=== PATIENT | male | born 1955 | race Caucasian/White ===

== ENCOUNTER 2020-08-29 14:18 | Emergency (ER) | payer MEDICAID ==
[~2020-08-29] VITALS: Ht 185.4 cm; Wt 79.5 kg
[~2020-08-29 14:18] MED LIST: DILANTIN
[2020-08-29 15:06] VITALS: BP 114/67
== END 2020-08-29 19:13 | disposition home or self-care (01) ==
LOC: EMS 14:18
DX: F10.129 Alcohol abuse with intoxication, unspecified (principal); M25.552 Pain in left hip; F17.210 Nicotine dependence, cigarettes, uncomplicated
CPT/HCPCS: 72170; 99284; 73120-TC; Z7502

== ENCOUNTER 2020-08-29 22:49 | Emergency (ER) | payer MEDICAID ==
[~2020-08-29] VITALS: Ht 177.8 cm; Wt 79.5 kg
[2020-08-30 02:52] VITALS: BP 148/94
[2020-08-30] MEDS ORDERED: ChlordiazePOXIDE HCL 25 MG CAPSULE PO ONE ×2 (03:45)
[2020-08-30 04:11] LABS: GLUCOSE,POINT OF CARE 112 MG/DL (70-110)
[2020-08-30] MEDS ORDERED: LevETIRAcetam 500 MG TABLET PO ONE (04:15)
== END 2020-08-30 04:58 | disposition home or self-care (01) ==
LOC: EMS 22:49
DX: F10.10 Alcohol abuse, uncomplicated (principal); R25.1 Tremor, unspecified; F17.210 Nicotine dependence, cigarettes, uncomplicated; Z59.0 Homelessness
CPT/HCPCS: 82962; 99283

== ENCOUNTER 2021-05-08 22:26 | Emergency (ER) | payer MEDICAID ==
[~2021-05-08] VITALS: Ht 182.9 cm; Wt 79.0 kg
[~2021-05-08 22:26] MED LIST changes: +CHLO5CAP4 PO; +LEVE250T4 PO
[2021-05-09 04:00] VITALS: BP 121/74
== END 2021-05-09 04:05 | disposition home or self-care (01) ==
LOC: EMS 22:27
DX: S01.111A Laceration without foreign body of right eyelid and periocular area, initial encounter (principal); S50.312A Abrasion of left elbow, initial encounter; S09.90XA Unspecified injury of head, initial encounter; F10.20 Alcohol dependence, uncomplicated; Z79.899 Other long term (current) drug therapy; W18.39XA Other fall on same level, initial encounter; Y93.89 Activity, other specified; Y92.89 Other specified places as the place of occurrence of the external cause; Y99.8 Other external cause status
CPT/HCPCS: 70450; 72125; 99284

== ENCOUNTER 2021-05-15 20:43 | Emergency (ER) | payer MEDICAID ==
[~2021-05-15] VITALS: Ht 180.3 cm; Wt 79.5 kg
[2021-05-15 21:39] LABS: BASOPHILS % (AUTO) 1.1 % (0.0-2.0); EOSINOPHILS % (AUTO) 4.1 % (1.0-6.0); HEMOGLOBIN 10.1 g/dL (13.5-17.5); LYMPHOCYTES # (AUTO) 1.3 K/uL (1.0-4.8); LYMPHOCYTES % (AUTO) 30.9 % (22.0-44.0); MEAN CORPUSCULAR HGB CONC 31.6 G/dL (31.0-37.0); MEAN CORPUSCULAR VOLUME 79 fL (80-100); MONOCYTES # (AUTO) 0.4 K/uL (0.1-1.0); MONOCYTES % (AUTO) 8.7 % (2.0-9.0); NEUTROPHILS # (AUTO) 2.2 K/uL (1.8-7.7); NEUTROPHILS % (AUTO) 55.2 % (40.0-70.0); PLATELET COUNT (AUTO) 274 K/uL (150-450); RED BLOOD CELL COUNT(AUTO) 4.04 MIL/uL (4.50-5.90); RED CELL DISTRIBUTION WIDTH 21.8 % (11.5-14.5)
[2021-05-15 21:54] LABS: ALANINE AMINOTRANSFERASE 17 U/L (12-78); ALBUMIN 3.2 g/dL (3.4-5.0); ALKALINE PHOSPHATASE 81 U/L (46-116); ANION GAP 12 mmol/L (8-16); ASPARTATE AMINOTRANSFERASE 31 U/L (15-37); BILIRUBIN,TOTAL 0.2 mg/dL (0.1-1.0); CALCIUM, TOTAL 8.9 mg/dL (8.8-10.5); CARBON DIOXIDE 29 mmol/L (22-29); CHLORIDE 103 mmol/L (98-107); CREATININE 0.61 mg/dL (0.60-1.30); GLOMERULAR FILTR. RATE CALC > 60 mL/min (>60); GLUCOSE,RANDOM 122 mg/dL (70-110); LIPASE 135 U/L (73-393); SODIUM SERUM 144 mmol/L (136-145); TOTAL PROTEIN, SERUM 8.7 g/dL (6.4-8.2); UREA NITROGEN, BLOOD 8 mg/dL (7-18)
[2021-05-15 21:56] LABS: AMMONIA 22 umol/L (11-32)
[2021-05-16] MEDS ORDERED: POTASSIUM CHLORIDE 20 MEQ ER TABLET PO ONE (01:00)
[2021-05-16 05:21] VITALS: BP 115/75
== END 2021-05-16 05:28 | disposition home or self-care (01) ==
LOC: EMS 20:46 → MERGE 20:46 → EMS 05-16 05:28
DX: F10.129 Alcohol abuse with intoxication, unspecified (principal); Y90.8 Blood alcohol level of 240 mg/100 ml or more; R51.9 Headache, unspecified; Z79.899 Other long term (current) drug therapy
CPT/HCPCS: 36415; 70450; 71045; 72125; 80053; 82140; 83690; 83735; 84484; 85025; 93005; 99285; G0480

== ENCOUNTER 2021-05-16 09:21 | Inpatient (IN) | payer MEDICAID ==
[~2021-05-16] VITALS: Ht 182.9 cm; Wt 74.1 kg
[2021-05-16] MEDS ORDERED: LORazepam 2 MG/ML VIAL IM ONE (12:00)
[2021-05-16] MEDS ORDERED: IOHEXOL 350 MG/ML 75 ML VIAL ONE (12:15)
[2021-05-16] MEDS ORDERED: SODIUM CHLORIDE 0.9% 0 ML ONE (12:15)
[2021-05-16 12:38] LABS: ANION GAP 21 mmol/L (8-16); CALCIUM, TOTAL 9.3 mg/dL (8.8-10.5); CARBON DIOXIDE 18 mmol/L (22-29); CHLORIDE 99 mmol/L (98-107); CREATININE 0.91 mg/dL (0.60-1.30); GLOMERULAR FILTR. RATE CALC > 60 mL/min (>60); GLUCOSE,RANDOM 120 mg/dL (70-110); POTASSIUM 3.8 mmol/L (3.5-5.1); SODIUM SERUM 138 mmol/L (136-145); UREA NITROGEN, BLOOD 8 mg/dL (7-18)
[2021-05-16 12:44] LABS: ALANINE AMINOTRANSFERASE 15 U/L (12-78); ALBUMIN 3.3 g/dL (3.4-5.0); ALKALINE PHOSPHATASE 87 U/L (46-116); ASPARTATE AMINOTRANSFERASE 36 U/L (15-37); BILIRUBIN,TOTAL 0.4 mg/dL (0.1-1.0); TOTAL PROTEIN, SERUM 8.9 g/dL (6.4-8.2)
[2021-05-16 12:48] LABS: BASOPHILS % (AUTO) 0.5 % (0.0-2.0); EOSINOPHILS % (AUTO) 0.3 % (1.0-6.0); HEMATOCRIT 30.8 % (41-53); HEMOGLOBIN 9.7 g/dL (13.5-17.5); LYMPHOCYTES # (AUTO) 0.9 K/uL (1.0-4.8); LYMPHOCYTES % (AUTO) 12.6 % (22.0-44.0); MEAN CORPUSCULAR HEMOGLOBIN 24.9 pg (26.0-34.0); MEAN CORPUSCULAR HGB CONC 31.5 G/dL (31.0-37.0); MEAN CORPUSCULAR VOLUME 79 fL (80-100); MONOCYTES # (AUTO) 0.5 K/uL (0.1-1.0); MONOCYTES % (AUTO) 7.4 % (2.0-9.0); NEUTROPHILS # (AUTO) 5.6 K/uL (1.8-7.7); NEUTROPHILS % (AUTO) 79.2 % (40.0-70.0); PLATELET COUNT (AUTO) 243 K/uL (150-450); RED BLOOD CELL COUNT(AUTO) 3.89 MIL/uL (4.50-5.90); RED CELL DISTRIBUTION WIDTH 21.7 % (11.5-14.5)
[2021-05-16 14:49] LABS: COVID AG,FIA SOURCE NASAL SWAB
[2021-05-16] MEDS ORDERED: LIDOCAINE 1%/EPI 1:200,000/PF 30 ML VIAL PERC ONE (15:00)
[2021-05-16 17:35] VITALS: BP 166/100
[2021-05-16 17:42] VITALS: BP 180/99
[2021-05-16] MEDS ORDERED: LORazepam 2 MG/ML VIAL IVP ONE (18:00)
[2021-05-16 18:01] LABS: GLUCOMETER DEV NAME(LOC) 5S.1B; GLUCOSE,POINT OF CARE 136 MG/DL (70-110)
[2021-05-16 20:23] VITALS: BP 150/90
[2021-05-17] MEDS ORDERED: ONDANSETRON HCL 4 MG/2 ML VIAL IVP PRN (01:00)
[2021-05-17] MEDS ORDERED: MAGNESIUM HYDROXIDE SUSPENSION 30 ML UDCUP PO PRN (01:00)
[2021-05-17] MEDS ORDERED: ALBUTEROL SULFATE 2.5 MG/0.5 ML NEB SOLUTION NEB PRN (01:00)
[2021-05-17] MEDS ORDERED: ZOLPIDEM TARTRATE 5 MG TABLET PO PRN (01:00)
[2021-05-17] MEDS ORDERED: IPRATROPIUM BROMIDE 0.5 MG/2.5 ML NEB SOLUTION NEB PRN (01:00)
[2021-05-17] MEDS ORDERED: ACETAMINOPHEN 325 MG TABLET PO PRN (01:00)
[2021-05-17] MEDS ORDERED: BISACODYL 10 MG RECTAL RECTAL SUPPOSITORY PR PRN (01:00)
[2021-05-17] MEDS ORDERED: LORazepam 2 MG/ML VIAL IVP PRN (01:00)
[2021-05-17] MEDS ORDERED: SODIUM CHLORIDE 0.9% 250 ML IV ONE (01:25)
[2021-05-17] MEDS ORDERED: LevETIRAcetam 1,000 MG in DEXTROSE 5%-WATER 100 ML IV ONE (02:00)
[2021-05-17 02:22] VITALS: BP 149/94
[2021-05-17 04:49] VITALS: BP 138/99
[2021-05-17] MEDS: ChlordiazePOXIDE HCL 25 MG CAPSULE PO SCH ×3 (04:54→11:57)
[2021-05-17 07:46] VITALS: BP 150/86
[2021-05-17] MEDS: 1: MAGNESIUM SULFATE 2 GM, MVI, ADULT NO.1 WITH VIT K 10 ML, THIAMINE 100 MG, FOLIC ACID IV SCH ×10 (08:23→22:35)
[2021-05-17] MEDS: PANTOPRAZOLE SODIUM 40 MG/VIAL IVP SCH (08:31)
[2021-05-17] MEDS: HEPARIN SODIUM,PORCINE 5,000 UNITS/ML VIAL SQ SCH ×3 (08:32→23:58)
[2021-05-17 11:51] VITALS: BP 131/79
[2021-05-17] MEDS ORDERED: LevETIRAcetam 1,000 MG in DEXTROSE 5%-WATER 100 ML IV SCH (14:00)
[2021-05-17 16:30] VITALS: BP 117/84
[2021-05-17] MEDS ORDERED: SODIUM CHLORIDE 0.9% 1,000 ML ONE (19:50)
[2021-05-17 20:10] VITALS: BP 116/67
[2021-05-17 20:19] LABS: BASOPHILS % (AUTO) 0.9 % (0.0-2.0); EOSINOPHILS % (AUTO) 2.9 % (1.0-6.0); HEMATOCRIT 30.7 % (41-53); HEMOGLOBIN 9.8 g/dL (13.5-17.5); LYMPHOCYTES # (AUTO) 0.7 K/uL (1.0-4.8); LYMPHOCYTES % (AUTO) 9.4 % (22.0-44.0); MEAN CORPUSCULAR HEMOGLOBIN 24.9 pg (26.0-34.0); MEAN CORPUSCULAR HGB CONC 31.8 G/dL (31.0-37.0); MEAN CORPUSCULAR VOLUME 78 fL (80-100); MONOCYTES # (AUTO) 0.4 K/uL (0.1-1.0); NEUTROPHILS # (AUTO) 5.9 K/uL (1.8-7.7); NEUTROPHILS % (AUTO) 81.8 % (40.0-70.0); PLATELET COUNT (AUTO) 193 K/uL (150-450); RED BLOOD CELL COUNT(AUTO) 3.91 MIL/uL (4.50-5.90); RED CELL DISTRIBUTION WIDTH 21.2 % (11.5-14.5)
[2021-05-17] MEDS: LevETIRAcetam 500 MG TABLET PO SCH (20:24)
[2021-05-17] MEDS: CeFAZolin 2 GM/DEXTROSE 50 ML IV SCH (20:24)
[2021-05-17 20:27] LABS: ANION GAP 10 mmol/L (8-16); CALCIUM, TOTAL 8.9 mg/dL (8.8-10.5); CARBON DIOXIDE 26 mmol/L (22-29); CHLORIDE 101 mmol/L (98-107); CREATININE 0.76 mg/dL (0.60-1.30); GLOMERULAR FILTR. RATE CALC > 60 mL/min (>60); GLUCOSE,RANDOM 141 mg/dL (70-110); POTASSIUM 3.5 mmol/L (3.5-5.1); SODIUM SERUM 137 mmol/L (136-145); UREA NITROGEN, BLOOD 12 mg/dL (7-18)
[2021-05-17 20:33] LABS: ALANINE AMINOTRANSFERASE 16 U/L (12-78); ALBUMIN 2.6 g/dL (3.4-5.0); ALKALINE PHOSPHATASE 86 U/L (46-116); ASPARTATE AMINOTRANSFERASE 23 U/L (15-37); BILIRUBIN,TOTAL 0.4 mg/dL (0.1-1.0)
[2021-05-18] VITALS (7 sets, daily range): BP systolic 118–147; BP diastolic 69–92
[2021-05-18] MEDS: HYDROCODONE/ACETAMINOPHEN 5-325 MG TABLET PO PRN ×2 (00:15→16:30)
[2021-05-18] MEDS ORDERED: LevETIRAcetam 1,000 MG in DEXTROSE 5%-WATER 100 ML IV SCH (02:00)
[2021-05-18] MEDS: CeFAZolin 2 GM/DEXTROSE 50 ML IV SCH ×3 (03:11→19:38)
[2021-05-18] MEDS: 1: MAGNESIUM SULFATE 2 GM, MVI, ADULT NO.1 WITH VIT K 10 ML, THIAMINE 100 MG, FOLIC ACID IV SCH ×10 (04:14→17:58)
[2021-05-18 07:00] LABS: BASOPHILS % (AUTO) 0.8 % (0.0-2.0); HEMOGLOBIN 9.1 g/dL (13.5-17.5); LYMPHOCYTES # (AUTO) 1.3 K/uL (1.0-4.8); LYMPHOCYTES % (AUTO) 25.4 % (22.0-44.0); MEAN CORPUSCULAR HEMOGLOBIN 24.9 pg (26.0-34.0); MEAN CORPUSCULAR HGB CONC 31.5 G/dL (31.0-37.0); MEAN CORPUSCULAR VOLUME 79 fL (80-100); MONOCYTES # (AUTO) 0.4 K/uL (0.1-1.0); MONOCYTES % (AUTO) 7.8 % (2.0-9.0); NEUTROPHILS # (AUTO) 3.2 K/uL (1.8-7.7); PLATELET COUNT (AUTO) 180 K/uL (150-450); RED BLOOD CELL COUNT(AUTO) 3.67 MIL/uL (4.50-5.90)
[2021-05-18] MEDS ORDERED: LORazepam 2 MG TABLET PO PRN (07:00)
[2021-05-18 07:30] LABS: ALANINE AMINOTRANSFERASE 10 U/L (12-78); ALBUMIN 2.4 g/dL (3.4-5.0); ALKALINE PHOSPHATASE 66 U/L (46-116); ANION GAP 6 mmol/L (8-16); ASPARTATE AMINOTRANSFERASE 19 U/L (15-37); BILIRUBIN,TOTAL 0.3 mg/dL (0.1-1.0); CALCIUM, TOTAL 8.5 mg/dL (8.8-10.5); CARBON DIOXIDE 28 mmol/L (22-29); CHLORIDE 102 mmol/L (98-107); CREATININE 0.63 mg/dL (0.60-1.30); GLOMERULAR FILTR. RATE CALC > 60 mL/min (>60); GLUCOSE,RANDOM 92 mg/dL (70-110); POTASSIUM 3.2 mmol/L (3.5-5.1); SODIUM SERUM 136 mmol/L (136-145); TOTAL PROTEIN, SERUM 7.3 g/dL (6.4-8.2); UREA NITROGEN, BLOOD 10 mg/dL (7-18)
[2021-05-18] MEDS: PANTOPRAZOLE SODIUM 40 MG/VIAL IVP SCH (08:55)
[2021-05-18] MEDS: HEPARIN SODIUM,PORCINE 5,000 UNITS/ML VIAL SQ SCH ×2 (08:55→16:00)
[2021-05-18] MEDS: LORazepam 2 MG TABLET PO SCH ×4 (08:56→21:00)
[2021-05-18] MEDS: MORPHINE SULFATE 2 MG/ML SYRINGE IVP PRN (08:56)
[2021-05-18] MEDS: LevETIRAcetam 500 MG TABLET PO SCH ×2 (08:56→21:24)
[2021-05-19] MEDS: HEPARIN SODIUM,PORCINE 5,000 UNITS/ML VIAL SQ SCH ×4 (00:04→22:58)
[2021-05-19] MEDS: CeFAZolin 2 GM/DEXTROSE 50 ML IV SCH ×3 (03:40→20:32)
[2021-05-19 05:47] VITALS: BP 150/81
[2021-05-19 07:31] LABS: BASOPHILS % (AUTO) 0.8 % (0.0-2.0); EOSINOPHILS % (AUTO) 3.1 % (1.0-6.0); HEMATOCRIT 30.5 % (41-53); HEMOGLOBIN 9.6 g/dL (13.5-17.5); LYMPHOCYTES % (AUTO) 14.7 % (22.0-44.0); MEAN CORPUSCULAR HEMOGLOBIN 24.8 pg (26.0-34.0); MEAN CORPUSCULAR HGB CONC 31.6 G/dL (31.0-37.0); MEAN CORPUSCULAR VOLUME 78 fL (80-100); MONOCYTES # (AUTO) 0.5 K/uL (0.1-1.0); MONOCYTES % (AUTO) 7.3 % (2.0-9.0); NEUTROPHILS # (AUTO) 4.8 K/uL (1.8-7.7); NEUTROPHILS % (AUTO) 74.1 % (40.0-70.0); PLATELET COUNT (AUTO) 201 K/uL (150-450); RED BLOOD CELL COUNT(AUTO) 3.89 MIL/uL (4.50-5.90); RED CELL DISTRIBUTION WIDTH 20.7 % (11.5-14.5)
[2021-05-19 07:45] LABS: ALANINE AMINOTRANSFERASE 12 U/L (12-78); ALBUMIN 2.5 g/dL (3.4-5.0); ALKALINE PHOSPHATASE 66 U/L (46-116); ANION GAP 7 mmol/L (8-16); ASPARTATE AMINOTRANSFERASE 18 U/L (15-37); BILIRUBIN,TOTAL 0.2 mg/dL (0.1-1.0); CARBON DIOXIDE 27 mmol/L (22-29); CHLORIDE 101 mmol/L (98-107); CREATININE 0.56 mg/dL (0.60-1.30); GLOMERULAR FILTR. RATE CALC > 60 mL/min (>60); GLUCOSE,RANDOM 102 mg/dL (70-110); POTASSIUM 3.4 mmol/L (3.5-5.1); SODIUM SERUM 135 mmol/L (136-145); TOTAL PROTEIN, SERUM 7.8 g/dL (6.4-8.2); UREA NITROGEN, BLOOD 8 mg/dL (7-18)
[2021-05-19 07:51] VITALS: BP 151/93
[2021-05-19 11:30] VITALS: BP 137/89
[2021-05-19] MEDS: 1: MAGNESIUM SULFATE 2 GM, MVI, ADULT NO.1 WITH VIT K 10 ML, THIAMINE 100 MG, FOLIC ACID IV SCH ×5 (12:49)
[2021-05-19] MEDS: PANTOPRAZOLE SODIUM 40 MG/VIAL IVP SCH (12:51)
[2021-05-19] MEDS: MORPHINE SULFATE 2 MG/ML SYRINGE IVP PRN (12:52)
[2021-05-19] MEDS: LevETIRAcetam 500 MG TABLET PO SCH ×2 (12:53→20:32)
[2021-05-19] MEDS: LORazepam 2 MG TABLET PO SCH ×2 (12:53→12:59)
[2021-05-19 16:03] VITALS: BP 135/82
[2021-05-19 20:00] VITALS: BP 142/91
[2021-05-19] MEDS: HYDROCODONE/ACETAMINOPHEN 5-325 MG TABLET PO PRN (20:32)
[2021-05-20] MEDS: CeFAZolin 2 GM/DEXTROSE 50 ML IV SCH ×2 (03:30→11:38)
[2021-05-20 04:00] VITALS: BP 120/77
[2021-05-20 06:53] LABS: BASOPHILS % (AUTO) 1.1 % (0.0-2.0); EOSINOPHILS % (AUTO) 5.1 % (1.0-6.0); HEMATOCRIT 34.2 % (41-53); HEMOGLOBIN 10.4 g/dL (13.5-17.5); LYMPHOCYTES # (AUTO) 1.2 K/uL (1.0-4.8); LYMPHOCYTES % (AUTO) 31.3 % (22.0-44.0); MEAN CORPUSCULAR HEMOGLOBIN 25.1 pg (26.0-34.0); MEAN CORPUSCULAR HGB CONC 30.4 G/dL (31.0-37.0); MEAN CORPUSCULAR VOLUME 83 fL (80-100); MONOCYTES # (AUTO) 0.5 K/uL (0.1-1.0); NEUTROPHILS % (AUTO) 50.5 % (40.0-70.0); RED BLOOD CELL COUNT(AUTO) 4.15 MIL/uL (4.50-5.90); RED CELL DISTRIBUTION WIDTH 20.9 % (11.5-14.5)
[2021-05-20 06:55] LABS: PLATELET COUNT (AUTO) 185 K/uL (150-450)
[2021-05-20] MEDS ORDERED: LORazepam 1 MG TABLET PO PRN (07:00)
[2021-05-20 07:25] LABS: ALANINE AMINOTRANSFERASE 9 U/L (12-78); ALBUMIN 2.4 g/dL (3.4-5.0); ALKALINE PHOSPHATASE 60 U/L (46-116); ANION GAP 6 mmol/L (8-16); ASPARTATE AMINOTRANSFERASE 14 U/L (15-37); BILIRUBIN,TOTAL 0.2 mg/dL (0.1-1.0); CALCIUM, TOTAL 9.2 mg/dL (8.8-10.5); CARBON DIOXIDE 27 mmol/L (22-29); CHLORIDE 103 mmol/L (98-107); CREATININE 0.57 mg/dL (0.60-1.30); GLUCOSE,RANDOM 104 mg/dL (70-110); POTASSIUM 3.5 mmol/L (3.5-5.1); SODIUM SERUM 136 mmol/L (136-145); TOTAL PROTEIN, SERUM 7.6 g/dL (6.4-8.2); UREA NITROGEN, BLOOD 10 mg/dL (7-18)
[2021-05-20 07:27] LABS: GLOMERULAR FILTR. RATE CALC > 60 mL/min (>60)
[2021-05-20 07:54] VITALS: BP 129/80
[2021-05-20] MEDS: LORazepam 1 MG TABLET PO SCH ×4 (08:17→19:45)
[2021-05-20] MEDS: HYDROCODONE/ACETAMINOPHEN 5-325 MG TABLET PO PRN (08:17)
[2021-05-20] MEDS: PANTOPRAZOLE SODIUM 40 MG/VIAL IVP SCH (08:18)
[2021-05-20] MEDS: HEPARIN SODIUM,PORCINE 5,000 UNITS/ML VIAL SQ SCH ×2 (08:19→16:28)
[2021-05-20] MEDS: LevETIRAcetam 500 MG TABLET PO SCH ×2 (09:06→19:45)
[2021-05-20 11:26] VITALS: BP 114/73
[2021-05-20] MEDS ORDERED: PIPERONYL BUTOXIDE/PYRETHRINS 120 ML SHAMPOO TP ONE (15:15)
[2021-05-20 15:31] LABS: PHOSPHORUS 3.1 mg/dL (2.5-4.9)
[2021-05-20 15:58] VITALS: BP 118/80
[2021-05-20 19:28] VITALS: BP 133/69
[2021-05-20] MEDS: 1: MAGNESIUM SULFATE 2 GM, MVI, ADULT NO.1 WITH VIT K 10 ML, THIAMINE 100 MG, FOLIC ACID IV SCH ×10 (19:34→19:42)
[2021-05-20 23:16] VITALS: BP 128/72
[2021-05-21] MEDS: HEPARIN SODIUM,PORCINE 5,000 UNITS/ML VIAL SQ SCH ×2 (00:21→08:27)
[2021-05-21 03:59] VITALS: BP 134/71
[2021-05-21 06:41] LABS: BASOPHILS % (AUTO) 1.1 % (0.0-2.0); EOSINOPHILS % (AUTO) 4.4 % (1.0-6.0); HEMATOCRIT 29.8 % (41-53); HEMOGLOBIN 9.6 g/dL (13.5-17.5); LYMPHOCYTES # (AUTO) 1.1 K/uL (1.0-4.8); MEAN CORPUSCULAR HEMOGLOBIN 25.5 pg (26.0-34.0); MEAN CORPUSCULAR HGB CONC 32.3 G/dL (31.0-37.0); MEAN CORPUSCULAR VOLUME 79 fL (80-100); MONOCYTES # (AUTO) 0.6 K/uL (0.1-1.0); NEUTROPHILS # (AUTO) 2.5 K/uL (1.8-7.7); NEUTROPHILS % (AUTO) 57.5 % (40.0-70.0); PLATELET COUNT (AUTO) 202 K/uL (150-450); RED BLOOD CELL COUNT(AUTO) 3.77 MIL/uL (4.50-5.90)
[2021-05-21] MEDS ORDERED: LORazepam 1 MG TABLET PO PRN (07:00)
[2021-05-21 07:05] LABS: ALANINE AMINOTRANSFERASE 11 U/L (12-78); ALBUMIN 2.6 g/dL (3.4-5.0); ALKALINE PHOSPHATASE 66 U/L (46-116); ANION GAP 8 mmol/L (8-16); ASPARTATE AMINOTRANSFERASE 21 U/L (15-37); BILIRUBIN,TOTAL 0.2 mg/dL (0.1-1.0); CALCIUM, TOTAL 9.3 mg/dL (8.8-10.5); CARBON DIOXIDE 27 mmol/L (22-29); CHLORIDE 101 mmol/L (98-107); CREATININE 0.59 mg/dL (0.60-1.30); GLUCOSE,RANDOM 103 mg/dL (70-110); POTASSIUM 3.9 mmol/L (3.5-5.1); SODIUM SERUM 136 mmol/L (136-145); TOTAL PROTEIN, SERUM 7.7 g/dL (6.4-8.2); UREA NITROGEN, BLOOD 12 mg/dL (7-18)
[2021-05-21 07:13] LABS: GLOMERULAR FILTR. RATE CALC > 60 mL/min (>60)
[2021-05-21 07:55] VITALS: BP 151/92
[2021-05-21] MEDS: LevETIRAcetam 500 MG TABLET PO SCH (08:27)
[2021-05-21] MEDS: PANTOPRAZOLE SODIUM 40 MG/VIAL IVP SCH (08:27)
[2021-05-21 11:40] VITALS: BP 139/91
[2021-05-22] MEDS ORDERED: THIAMINE 100 MG TABLET PO SCH (09:00)
[2021-05-22] MEDS ORDERED: PANTOPRAZOLE SODIUM 40 MG DR TABLET PO SCH (09:00)
[2021-05-22] MEDS ORDERED: FOLIC ACID 1 MG TABLET PO SCH (09:00)
[2021-05-22] MEDS ORDERED: MULTIVITAMINS, THERAPEUTIC TABLET PO SCH (09:00)
== END 2021-05-21 15:30 | disposition left against medical advice (07) | DRG 82 ==
LOC: EMS 09:21 → 5N 14:49
PROVIDERS: ADMIT Hospitalist; ATTEND Hospitalist
PROC: 0HQ1XZZ Repair Face Skin, External Approach (ICD-10-PCS; principal; 2021-05-16)
DX: S01.111A Laceration without foreign body of right eyelid and periocular area, initial encounter (principal); E87.2 Acidosis; R56.9 Unspecified convulsions; D64.9 Anemia, unspecified; S50.312A Abrasion of left elbow, initial encounter; E87.6 Hypokalemia; F10.139 Alcohol abuse with withdrawal, unspecified; X58.XXXA Exposure to other specified factors, initial encounter; S02.611 Fracture of condylar process of right mandible; F17.200 Nicotine dependence, unspecified, uncomplicated; Z20.822 Contact with and (suspected) exposure to COVID-19; R29.6 Repeated falls; W19.XXXA Unspecified fall, initial encounter; Y90.0 Blood alcohol level of less than 20 mg/100 ml; Z59.00 Homelessness unspecified; Y93.89 Activity, other specified; Y92.89 Other specified places as the place of occurrence of the external cause; Y99.8 Other external cause status; Z59.02 Unsheltered homelessness
CPT/HCPCS: 12013; 70450; 70486; 71045; 73521; 80053; 82962; 83735; 84100; 85025; 87040; 97163; 97167; 99285; C9113; G0480; J0690; J0712; J1644; J2060; J2270; J3411; J3475; J3490; J7030; J7050; J7060; Q9967; 36415-L1; 36415-TC

== ENCOUNTER 2021-05-21 18:01 | Emergency (ER) | payer MEDICAID ==
[~2021-05-21] VITALS: Ht 182.9 cm; Wt 79.5 kg
[2021-05-21 21:19] VITALS: BP 117/75
== END 2021-05-21 21:31 | disposition home or self-care (01) ==
LOC: MERGE 18:01 → EMS 18:01
DX: F10.229 Alcohol dependence with intoxication, unspecified (principal); R41.82 Altered mental status, unspecified; F17.210 Nicotine dependence, cigarettes, uncomplicated; Y90.9 Presence of alcohol in blood, level not specified
CPT/HCPCS: 99283

== ENCOUNTER 2021-05-23 15:04 | Emergency (ER) | payer MEDICAID ==
[~2021-05-23] VITALS: Ht 182.9 cm; Wt 72.7 kg
[2021-05-23] MEDS ORDERED: ChlordiazePOXIDE HCL 25 MG CAPSULE PO ONE (18:30)
[2021-05-23 18:46] VITALS: BP 143/86
== END 2021-05-23 19:48 | disposition home or self-care (01) ==
LOC: EMS 15:04 → MERGE 15:04 → EMS 19:48
DX: F10.129 Alcohol abuse with intoxication, unspecified (principal); R40.1 Stupor; F17.210 Nicotine dependence, cigarettes, uncomplicated
CPT/HCPCS: 99283